=== PATIENT | male | born 1980 | race Caucasian/White ===

== ENCOUNTER 2020-06-07 18:31 | Emergency (ER) | payer OTHER ==
[~2020-06-07] VITALS: Ht 172.7 cm; Wt 84.1 kg
[~2020-06-07 18:31] MED LIST: ADVIL200 MG PO; ALEVE220 MG PO; HYDROCODONE-APA1 TAB PO
[2020-06-07 18:36] VITALS: BP 136/90; Ht 172.7 cm; Wt 84.1 kg
[2020-06-07] MEDS ORDERED: AMOXICILLIN500 M1 PO (19:03)
[2020-06-07] MEDS ORDERED: STERAPRED DS 1010 MG PO (19:05)
[2020-06-07] MEDS ORDERED: PEPCID40 MG PO (19:05)
== END 2020-06-07 19:05 | disposition left against medical advice (07) ==
LOC: D.ER 18:31
DX: K02.9 Dental caries, unspecified (principal); T78.3XXA Angioneurotic edema, initial encounter; K05.10 Chronic gingivitis, plaque induced; Z72.0 Tobacco use; R51.9 Headache, unspecified

== ENCOUNTER 2020-11-29 19:04 | Inpatient (IN) | payer OTHER ==
[~2020-11-29] VITALS: Ht 172.7 cm; Wt 83.9 kg
[~2020-11-29 19:04] MED LIST changes: +AMOXICILLIN500 M1 PO; +PEPCID40 MG PO; +STERAPRED DS 1010 MG PO
[2020-11-29 20:26] LABS: CALC OSMOLALITY 278 mosm/kg (275-300); CARBON DIOXIDE 27.3 mmol/L (21.0-32.0); CHLORIDE - SERUM 103 mmol/L (98-107); GLUCOSE 111 mg/dL (74-106); POTASSIUM - SERUM 3.5 mmol/L (3.5-5.1); SODIUM 139 mmol/L (136-145); UREA NITROGEN 12 mg/dL (7-18); eGFR NON AFRICAN AMERICAN 89 mL/min (90-120)
[2020-11-29 20:28] LABS: BASOPHILS 0.7 % (0-2); EOSINOPHILS 2.7 % (0-7); HEMOGLOBIN 14.2 g/dL (13.5-17.5); IMMATURE GRANULOCYTES 1.7 % (0-5); LYMPHOCYTE ABS# 2.89 10x3/uL (1.32-3.57); MCH 30.2 pg (26.0-34.0); MCHC 33.8 g/dL (31.0-37.0); MCV 89.4 fL (80.0-100.0); MEAN PLATELET VOLUME 10.5 fL (7.4-10.4); MONOCYTES 10.7 % (2-11); NEUTROPHILS 56.2 % (40-80); PLATELET COUNT 244 10x3/uL (130-400); RDW 13.7 % (11.5-14.5); WBC 10.3 10x3/uL (4.8-10.8)
[2020-11-29 20:38] VITALS: BP 117/75
[2020-11-29 20:38] LABS: ALBUMIN 2.7 g/dL (3.4-5.0); ALKALINE PHOSPHATASE 302 U/L (30-120); AMYLASE - SERUM 44 U/L (25-115); BILIRUBIN - TOTAL 6.82 mg/dL (0.2-1.3); LIPASE 139 U/L (73-393); TROPONIN-I < 0.017 ng/mL (0.000-0.060)
[2020-11-29 20:39] LABS: ALT (SGPT) 1123 U/L (10-68)
[2020-11-29 21:21] LABS: APTT 32.7 SECONDS (22.8-39.4); INR 1.06 (0.85-1.17); PROTIME 12.8 SECONDS (11.6-15.0)
[2020-11-29 21:37] VITALS: BP 103/68
[2020-11-29 21:37] LABS: BILIRUBIN 2+ (NEGATIVE); KETONE NEGATIVE (NEGATIVE); NITRITE NEGATIVE (NEGATIVE); UROBILINOGEN NORMAL mg/dL (< 2)
[2020-11-29 23:22] VITALS: BP 116/54; BMI 28.1
[2020-11-30 04:00] VITALS: BP 100/59
--- NOTE | 2020-11-30 07:13 | NUR ---
RECEIVE BEDSIDE SHIFT REPORT. RESTING BED, AROUSES TO SPEECH. DENIES ANY NEEDS AT THIS TIME. CALL LIGHT IN REACH. WILL CONTINUE POC AND SAFETY PRECAUTIONS.
[2020-11-30 08:57] VITALS: BP 132/75
[2020-11-30 12:38] VITALS: BP 117/65
[2020-11-30 13:16] VITALS: Ht 172.7 cm; Wt 83.9 kg
[2020-11-30 20:00] VITALS: BP 119/62
--- NOTE | 2020-12-01 03:57 | NUR ---
PT CONTINUES TO REST QUIETLY IN BED. NO NEEDS VOICED. WOKE UP LONG ENOUGH FOR ASSESSMENT THEN BACK TO SLEEP. WILL CONTINUE TO MONITOR.
[2020-12-01 04:00] VITALS: BP 108/62
--- NOTE | 2020-12-01 06:01 | NUR ---
CONTINUES TO REST QUIETLY. RESP EVEN & NONLABORED. WILL CONTINUE TO MONITOR.
--- NOTE | 2020-12-01 07:13 | NUR ---
RECEIVE SHIFT REPORT. PATIENT AMBULATING HALLS. DENIES ANY NEEDS. DENIES PAIN. WILL CONTINUE POC AND SAFETY PRECAUTIONS.
[2020-12-01 08:00] VITALS: BP 128/72
[2020-12-01 09:53] LABS: ALBUMIN 2.6 g/dL (3.4-5.0); ALKALINE PHOSPHATASE 382 U/L (30-120); BILIRUBIN - DIRECT 2.84 mg/dL (0.00-0.30); BILIRUBIN - TOTAL 3.67 mg/dL (0.2-1.3); PROTEIN - SERUM 6.9 g/dL (6.4-8.2)
[2020-12-01 09:54] LABS: ALT (SGPT) 683 U/L (10-68)
[2020-12-01 10:00] LABS: CALC OSMOLALITY 272 mosm/kg (275-300); CALCIUM 8.4 mg/dL (8.5-10.1); CARBON DIOXIDE 25.9 mmol/L (21.0-32.0); CHLORIDE - SERUM 104 mmol/L (98-107); CREATININE - SERUM 0.9 mg/dL (0.6-1.3); GLUCOSE 123 mg/dL (74-106); POTASSIUM - SERUM 3.4 mmol/L (3.5-5.1); SODIUM 137 mmol/L (136-145); UREA NITROGEN 8 mg/dL (7-18); eGFR NON AFRICAN AMERICAN > 90 mL/min (90-120)
[2020-12-01 10:15] LABS: BASOPHILS 0.8 % (0-2); EOSINOPHILS 3.1 % (0-7); HEMOGLOBIN 13.3 g/dL (13.5-17.5); IMMATURE GRANULOCYTES 2.3 % (0-5); LYMPHOCYTE ABS# 2.08 10x3/uL (1.32-3.57); LYMPHOCYTES 27.6 % (15-50); MCH 29.7 pg (26.0-34.0); MCHC 33.3 g/dL (31.0-37.0); MCV 89.3 fL (80.0-100.0); MEAN PLATELET VOLUME 10.8 fL (7.4-10.4); MONOCYTES 10.7 % (2-11); NEUTROPHIL ABS# 4.19 10x3/uL (1.78-5.38); NEUTROPHILS 55.5 % (40-80); PLATELET COUNT 266 10x3/uL (130-400); RBC 4.48 10x6/uL (4.20-6.10); RDW 13.9 % (11.5-14.5); WBC 7.5 10x3/uL (4.8-10.8)
[2020-12-01 11:00] VITALS: BP 126/74
[2020-12-01 11:11] LABS: HEPATITIS C ANTIBODY <0.1 S/CO RAT (0.0-0.9)
[2020-12-01 15:00] VITALS: BP 121/70
[2020-12-01 19:21] VITALS: BP 117/71
--- NOTE | 2020-12-01 23:27 | NUR ---
PT HAS BEEN UP AMBULATORY THROUGHOUT SHIFT. HAS REQUESTED PAIN MEDICINE X2. WILL CONTINUE TO MONITOR. NO DISTRESS NOTED
[2020-12-02 04:23] VITALS: BP 108/73
--- NOTE | 2020-12-02 05:45 | NUR ---
PT RESTING QUIETLY IN BED. RESP EVEN & NONLABORED. NO DISTRESS NOTED. WILL CONTINUE TO MONITOR.
--- NOTE | 2020-12-02 08:43 | NUR ---
PATIENT [id number], RESP EVEN AND NON LABORED, NO S/S OF DISTRESS, PATIENT STATES HE WAS HAVING PAIN IN THE ABDOMEN, PAIN IV MEDS ADMINISTERED WITH NO COMPLICATIONS, IV FLUSHED, NO FURTHER NEEDS AT THIS TIME, SANTANA ECHEVERRIA
[2020-12-02 08:54] LABS: ALBUMIN 2.7 g/dL (3.4-5.0); BILIRUBIN - DIRECT 1.88 mg/dL (0.00-0.30); BILIRUBIN - INDIRECT 0.72 mg/dL (0.00-1.00); BILIRUBIN - TOTAL 2.6 mg/dL (0.2-1.3); PROTEIN - SERUM 7.1 g/dL (6.4-8.2)
[2020-12-02 09:36] VITALS: BP 119/76
--- NOTE | 2020-12-02 13:25 | NUR ---
PATIENT STATED HE WAS LEAVING AMA DUE TO THE ENROLLMENT COUNSELOR TALKING TO HIM DISRESPECTFULLY, PATIENT ADVISED TO STAY AND APOLOGIZEDM TO AND PATIENT STILL WANTED TO LEAVE AMA, IV REMOVED AND DR NOTIFIED.
== END 2020-12-02 13:29 | disposition left against medical advice (07) | DRG 443 ==
LOC: D.ER 19:04 → D.M2 21:51 → OBSVTIME 21:51 → D.M2 21:51
PROVIDERS: Family Medicine; Internal Medicine Gastroenterology; Legal Medicine; ADMIT Emergency Medicine; ATTEND Emergency Medicine
DX: B17.9 Acute viral hepatitis, unspecified (principal); Z72.0 Tobacco use